=== PATIENT | male | born 1970 | race Caucasian/White ===

== ENCOUNTER 2019-02-05 09:31 | Inpatient (IN) ==
[2019-02-05] MEDS: Nitroglycerin 0.4 MG TAB.SUBL SL PRN ×2 (10:00→10:32)
[2019-02-05 10:03] LABS: Basophils % 0.2 %; Eosinophils # 0.1 K/mcL (0.0-0.6); Eosinophils % 0.5 %; Hemoglobin 16.5 g/dL (12.9-16.9); Immature Granulocytes % 0.5 % (0-4); Lymphocytes # 1.7 K/mcL (0.6-4.6); Lymphocytes % 14.2 %; Mean Corpuscular HGB Conc 35.9 g/dL (31.6-35.5); Mean Corpuscular Hemoglobin 32.4 pg (28.0-33.3); Mean Corpuscular Volume 90.2 fL (83.0-100.0); Mean Platelet Volume 10.8 fL (9.4-12.4); Monocytes # 1.1 K/mcL (0.0-1.3); Monocytes % 9.2 %; Platelet Count 168 K/mcL (140-400); Red Cell Distribution Width 12.1 % (11.5-14.5); Segmented Neutrophils % 75.4 %; White Blood Count 11.9 K/mcL (4.3-11.1)
[2019-02-05] MEDS ORDERED: Ondansetron ODT 4 MG TAB.RAPDIS SL ONE (10:17)
[2019-02-05 10:27] LABS: Troponin I 6.95 ng/mL (< 0.04)
--- NOTE | 2019-02-05 10:34 | Emergency Department Note ---
Disposition Clinical Impression: NSTEMI (non-ST elevated myocardial infarction) Disposition: Admitted As Inpatient Condition: Fair Referrals: Juliana Sánchez CNP [Primary Care Provider] - Forms: ED Satisfaction Letter Time of Disposition: 12:29 Chest Pain HPI - General Chief Complaint: ED Chest Pain Stated Complaint: CP Time Seen by Provider: 02/05/19 09:38 Source: patient Mode of arrival: private vehicle Limitations: no limitations Vital Signs Reviewed: Yes Nursing Notes Reviewed: Yes - History of Present Illness HPI Narrative: 48-year-old male with a past medical history of hypertension that reports chest pain that started Tuesday while he was sitting at work. He describes his chest pain as substernal in nature, feels like a pressure, is about a 5 out of 10. Not exacerbated or alleviated by anything. Also complaining of some concomitant diaphoresis and nausea. He denies any shortness of breath. Patient states that he was having difficulty sleeping last night because of the pain, tried Tylenol, tried ibuprofen without relief. Patient reports a family history of cardiac issues, states his grandfather of a heart attack when he was in his 40s. Patient does not know about any early cardiac in his family. Severity scale (1-10): 2 - Related Data Home Medications Medication Instructions Recorded Confirmed Omeprazole [PriLOSEC] 40 mg PO DAILY 02/05/19 02/05/19 Allergies Allergy/AdvReac Type Severity Reaction Status Date / Time No Known Allergies Allergy Verified 02/05/19 09:33 Chest Pain PMH - Past Medical History Medical history: Reports: GERD Psychiatric history: Reports: no psych history - Social History Smoking Status: Former smoker Alcohol use: Reports: heavy Drug use: Reports: none Physical Exam - General Limitations: no limitations General appearance: alert, in no apparent distress Course - Consultations Consultation #1: Spoke with Dr. Ferrer, cardiology, who states that they will come and see the patient at bedside. Agrees with the plan for heparin, requested 300 of plavix, beta bertha, and a statin. Will order. Time: 10:38 Vital Signs Temperature 97.8 F 02/05/19 09:32 Pulse Rate 73 02/05/19 09:32 Respiratory Rate 18 02/05/19 09:32 Blood Pressure 162/93 02/05/19 09:32 O2 Sat by Pulse Oximetry 99 02/05/19 09:32 Temperature 97.8 F 02/05/19 09:32 Pulse Rate 77 02/05/19 11:58 Respiratory Rate 16 02/05/19 11:58 Blood Pressure 134/91 02/05/19 11:58 O2 Sat by Pulse Oximetry 98 02/05/19 11:58 Oxygen Delivery Oxygen Delivery Room Air Chest Pain - MDM Narrative Medical decision making narrative: 48-year-old male with past medical history of hypertension that presents with chest pain that began on Tuesday while he was seated at his desk. Patient notes that he was unable to sleep for the pain last night so decided to get checked out. We will obtain a chest x-ray, EKG, troponin. Patient had resolution of his chest pain with the administration of 2 nitroglycerin. Patient's troponin was elevated at 6.95, EKG showed Q waves in leads 2, 3, aVF. He also had T-wave inversions in lead V4 through V6. Patient was started on low-dose ACS heparin, he was given 300 mg of Plavix, he was given 80 mg of atorvastatin, he was given a beta bertha per recommendation from cardiology. Cardiology came and evaluated the patient at the bedside and states that they would like him to go to the [facility] today. They placed orders. Patient was admitted to the hospitalist Dr. Estrada who agreed to accept the patient to his service. Results of the workup including any imaging and/or labwork was shared with the patient at bedside. Patient was given an opportunity to ask questions at bedside and all of their concerns were addressed. Patient verbalized understanding and agreement with plan of care. Pt remained stable while in the department. Chest X-Ray 02/05/19 09:43 IMPRESSION: No radiographic evidence of acute cardiopulmonary process. D/ / Krzysztof Cobb MD / Krzysztof Cobb MD Interpreting Provider: Krzysztof Cobb MD 1044 hrs.: Patient's troponins positive. Patient's pain free at this time cardiology was notified and are coming down to see the patient. 1110 hrs.: Dr. Ferrer from cardiology seen the patient Phenergan and taken to catheter lab emergently. Also got his EKG from urgent care and he did have some ischemic changes in inferior leads which is now resolved but he does have Q waves. He is pain-free at this time. - Medical Records Medical records reviewed: Yes I reviewed the patient's medical records. - Lab Data Lab results reviewed: Yes I reviewed the patient's lab results. Result diagrams: 02/05/19 09:51 02/05/19 09:51 Lab Results 02/05/19 02/05/19 02/05/19 Range/Units 09:51 09:51 09:51 WBC 11.9 H (4.3-11.1) K/mcL RBC 5.10 (4.19-5.50) M/mcL Hgb 16.5 (12.9-16.9) g/dL Hct 46.0 (37.5-50.1) % MCV 90.2 (83.0-100.0) fL MCH 32.4 (28.0-33.3) pg MCHC 35.9 H (31.6-35.5) g/dL RDW 12.1 (11.5-14.5) % Plt Count 168 (140-400) K/mcL MPV 10.8 (9.4-12.4) fL Immature Gran % 0.5 (0-4) % Seg Neutrophils % 75.4 % Lymphocytes % 14.2 % Monocytes % 9.2 % Eosinophils % 0.5 % Basophils % 0.2 % Neutrophils # 9.0 H (1.6-8.9) K/mcL Lymphocytes # 1.7 (0.6-4.6) K/mcL Monocytes # 1.1 (0.0-1.3) K/mcL Eosinophils # 0.1 (0.0-0.6) K/mcL Basophils # 0.0 (0.0-0.2) K/mcL PT 11.5 (9.4-12.1) Seconds INR 1.0 Heparin Anti-Xa, Unfract 0.00 L (0.30-0.70) IU/mL Sodium 137 (136-145) mEq/L Potassium 4.1 (3.5-5.1) mEq/L Chloride 101 (98-107) mEq/L Carbon Dioxide 23 (23-29) mEq/L BUN 9 (6-20) mg/dL Creatinine 0.97 (0.70-1.30) mg/dL Est GFR ( Amer) > 60 (> 60) Est GFR (Non-Af Amer) > 60 (> 60) BUN/Creatinine Ratio 9 (6-26) Glucose 125 H (70-105) mg/dL Calculated Osmolality 284 (280-300) Calcium 10.0 (8.6-10.3) mg/dL Troponin I 6.95 H* (< 0.04) ng/mL - Radiology Data Radiology results reviewed: Yes I reviewed the patient's radiology results. Chest X-Ray 02/05/19 09:43 IMPRESSION: No radiographic evidence of acute cardiopulmonary process. D/ / Krzysztof Cobb MD / Krzysztof Cobb MD Interpreting Provider: Krzysztof Cobb MD - EKG Data EKG attestation: Yes I reviewed and interpreted this EKG. EKG results narrative: 0943: Heart rate 77, rhythm sinus, axis left at -43. By mouth 165, QRS 101, QTc 477. Less than [address] depression noted in lead 1, aVR. Q waves noted in leads 2, 3, aVF. T-wave inversion noted in lead 2, 3, aVF, V4 through V6. No old EKG available for comparison. Heart Score - Score History: Moderately Suspicious EKG: Significant ST-Depression Age: 45-65 Risk Factors: 1-2 risk factors Troponin: Greater than 3x normal limit HEART Score Total: 7 Critical Care Time Critical Care Time: Yes Total Critical Care Time: 40 Attestation: Excluding any separately billable procedures
[2019-02-05 10:36] LABS: BUN/Creatinine Ratio 9 (6-26); Blood Urea Nitrogen 9 mg/dL (6-20); Carbon Dioxide 23 mEq/L (23-29); Chloride 101 mEq/L (98-107); Glucose 125 mg/dL (70-105); Osmolality,Calculated 284 (280-300); Potassium 4.1 mEq/L (3.5-5.1); Sodium 137 mEq/L (136-145); eGFR For African Americans > 60 (> 60); eGFR For Non-African Americans > 60 (> 60)
[2019-02-05] MEDS ORDERED: *HR* Heparin 5,000 UNIT/ML VIAL IVP ONE (10:36)
[2019-02-05] MEDS ORDERED: *HR* Heparin 5,000 UNIT/ML VIAL IVP PRN ×2 (10:36)
[2019-02-05] MEDS ORDERED: *HR* Labetalol 20 MG/4 ML SYRINGE IVP ONE (10:40)
[2019-02-05] MEDS ORDERED: Heparin 25,000 UNIT/250 ML D5W 25,000 UNIT/250 ML IV.SOLN IVC SCH (10:45)
[2019-02-05 11:08] LABS: Prothrombin Time 11.5 Seconds (9.4-12.1)
--- NOTE | 2019-02-05 11:22 | Cardiology Consult Note ---
Date of Encounter: 02/05/19 Time of Encounter: 11:18 Assessment and Plan (1) NSTEMI (non-ST elevated myocardial infarction) Current Visit: Yes Status: Acute Presentation consistent with ACS - NSTEMI. Symptoms resolved with NTG x2, ACS therapy being started in ER. Recommend DAPT, statin, BB, Heparin drip. Risks, benefits and alternatives to a LHC discussed. Patient and voiced understanding, wish to proceed. Check TTE. Risk factor modification encouraged. Further recommendations to follow. Discussion w patient/family: The assessment and plan as outlined above was discussed with the patient and/or family members who expressed understanding and agreement. All questions were answered. Thank you for involving us in the care of your patient. Please call with any questions. History of Present Illness Consult date: 02/05/19 Requesting physician: Edda Hermosillo Consult reason: ACS Chief complaint: Chest pain History of present illness: Mr. Gibbs is a 48 year old male who does not routinely see a doctor. Reports quit smoking in 2007. Presented to an outside urgent care with one week of intermittent chest discomfort. Describes as substernal pressure sensation, without radiation, nausea, or vomiting. Describes worsening exertional dyspnea over the past week. Symptoms became persistent over the weekend, especially yesterday. In urgent care this AM, ECG done and patient sent to ER. ECGs reviewed - inferior ND suggested, likely recent. Lateral ST-T changes noted. Reports pain resolved after second NTG in ER> Appeared very comfortable on my evaluation. ACS therapy being started by ER. Past Med Surg Social Fam HX - Past Medical History Medical history: GERD Psychiatric history: no psych history - Social History Smoking Status: Former smoker Alcohol use: heavy Drug use: none Medications and Allergies Allergy/AdvReac Type Severity Reaction Status Date / Time No Known Allergies Allergy Verified 02/05/19 09:33 All Systems Review: The remainder of the systems were reviewed and are negative - Cardiovascular Cardiovascular: as per HPI Physical Examination Vital Signs, Last 4 Hours Temp Pulse Resp BP Pulse Ox 02/05/19 10:34 71 18 134/95 96 02/05/19 10:25 76 16 137/92 97 02/05/19 09:53 63 16 143/98 96 02/05/19 09:32 97.8 F 73 18 162/93 99 General: Conversant, No Apparent Distress HEENT: Atraumatic, Normocephaly, Mucus Membranes Moist Neck: No JVD, Normal carotid pulses Cardiac: Reg Rate and Rhythm, Normal S1 and S2, No Murmur Lungs: Normal Breath Sounds, No Wheeze, Rales, Rhonchi Neuro: Alert and responsive, No focal deficits noted Abdomen: Soft, Non-Tender Skin: No rashes noted on visualized skin Musculoskeletal: No Chest Wall Tenderness Extremities: No Clubbing, No Cyanosis, No Edema Results 02/05/19 09:51 02/05/19 09:51 Lab Results 02/05/19 02/05/19 02/05/19 09:51 09:51 09:51 WBC 11.9 H Hgb 16.5 Hct 46.0 Plt Count 168 INR 1.0 Sodium 137 Potassium 4.1 Chloride 101 Carbon Dioxide 23 BUN 9 Creatinine 0.97 Glucose 125 H Calcium 10.0 Troponin I 6.95 H* - Imaging and Cardiology Chest Xray: report reviewed - EKG Interpretation EKG results cardiology: personally reviewed Consult Discharge Plan - Plan Referrals: Juliana Sánchez, MEDICAL RECEPTION [Primary Care Provider] -
[2019-02-05] MEDS: Metoprolol XL (24 HR) Succ 25 MG TAB.ER.24H PO SCH (11:58)
[2019-02-05] MEDS ORDERED: *HR* Midazolam HCl 2 MG/2 ML VIAL ONE (13:18)
[2019-02-05] MEDS ORDERED: *HR* FentaNYL (PF) 100 MCG/2 ML VIAL ONE (13:18)
[2019-02-05] MEDS ORDERED: 0.9 % Sodium Chloride 1,000 ML ONE (13:22)
--- NOTE | 2019-02-05 13:50 | Pre-Sedation Evaluation ---
Pre-sedation evaluation - Pre-sedation checklist Date of procedure: 02/05/19 Procedure: [facility] Recent Vitals: Last Vital Signs Temp 97.8 F 02/05/19 09:32 Pulse 69 02/05/19 12:45 Resp 16 02/05/19 12:45 BP 140/99 02/05/19 12:45 Pulse Ox 99 02/05/19 12:45 H&P (including ROS) documented in medical record: Yes Previous reaction to sedatives/anesthetics: No Dietary Status: NPO after Midnight ASA Classification *see protocol: CLASS II-Mild systemic disease Plan of Care: Pt appropriate candidate for procedure/moderate/conscious sedation, Risks/benefits of procedure/sedation discussed w/ patient/family Cardiac Registry (Cardio Only) - Functional Capacity Functional Capacity: >=4 METS with symptoms - Clincal Frailty Scale Clinical Frailty Scale: Managing Well
--- NOTE | 2019-02-05 13:52 | Internal Med History&Physical ---
<Karen Reilly - Last Filed: 02/05/19 17:43> Date of Encounter: 02/05/19 Internal Medicine - H&P: HPI History of present illness: Mr. Gibbs is a 48 year old male Internal Medicine - H&P: Meds Omeprazole [PriLOSEC] 40 mg PO DAILY 02/05/19 [History] Allergy/AdvReac Type Severity Reaction Status Date / Time No Known Allergies Allergy Verified 02/05/19 15:40 All Systems PM: A 10-system review of systems was performed and is negative for pertinent findings except as documented above in the HPI. - Constitutional Vitals: Temp Pulse Resp BP Pulse Ox 97.8 F 69 16 140/99 99 02/05/19 09:32 02/05/19 12:45 02/05/19 12:45 02/05/19 12:45 02/05/19 12:45 Internal Med - H&P Results - Labs CBC & Chem 7: 02/05/19 09:51 02/05/19 09:51 Labs: Short CBC 02/05/19 Range/Units 09:51 WBC 11.9 H (4.3-11.1) K/mcL Hgb 16.5 (12.9-16.9) g/dL Hct 46.0 (37.5-50.1) % Plt Count 168 (140-400) K/mcL Neutrophils # 9.0 H (1.6-8.9) K/mcL BMP 02/05/19 09:51 Sodium 137 Potassium 4.1 Chloride 101 Carbon Dioxide 23 BUN 9 Creatinine 0.97 Glucose 125 H Calcium 10.0 Cardiac Enzymes 02/05/19 Range/Units 09:51 Troponin I 6.95 H* (< 0.04) ng/mL - Impressions ITS Impressions Chest X-Ray 02/05/19 09:43 IMPRESSION: No radiographic evidence of acute cardiopulmonary process. D/ / Krzysztof Cobb MD / Krzysztof Cobb MD Interpreting Provider: Krzysztof Cobb MD - Time Spent With Patient Total time spent is greater than 50% in coordination of care (as documented) at patient's floor/unit and/or counseling patient: - Attending Attestation I examined this patient and my medical decision-making was reviewed with the Resident Physician Dr Gerardo. I agree with the documented findings, disposition and treatment plan as described except to the extent set forth below. Mr Gibbs is admitted with NSTEMI taken straight to cardiac cath lab radiology technologist from ED urgently. Pt seen and examined post cath awake, family at bedside. no cp, pressure, sob or palpitations. had cath R wrist, no hand pain, temp changes or numbness/tingling gen- alert, awake,appears stated age cv- reg rate and rhythm, normal s1,s2, no murmurs appreciated, cap refill right hand normal, warm ext lungs- ctabl, no wheezing, rhonchi or crackles neuro- AAOx3, sensation intact to lt touch hands NSTEMI CAD w total RCA occlusion s/p 3 RCA ESTELLA today -DAPT, statin, BB, hep gtt off, aggrastat to completion -echo pending Etoh use- drinks up to 20 beers weekly, denies etoh withdrawal, will add ciwa while here further dx and plan as noted by resident <Raoul Gerardo S - Last Filed: 02/05/19 20:07> Date of Encounter: 02/05/19 Time of Encounter: 13:43 Internal Medicine - H&P: HPI Chief complaint: Chest pain Admitted From: Home Plans for Post Hospital Care: Home History of present illness: Mr. Gibbs is a 48 year old male with pmh significant only for GERD being admitted for NSTEMI. He reports substernal pressure/pain rated 5/10 that does not radiate had been coming and going x 2 weeks, then started suddenly while sitting at his desk tuesday, and remained relatively constant, becoming more constant yesterday and today. He was unable to sleep last night due to pain. He tried APAP and Ibuprofen without relief of the pain and went to Urgent care today. EKG performed there showed abnormalities and the patient was sent to our facility. Initial troponin was 6.95 and EKG showed changes suggestive of inferior ischemia and some ST changes in the lateral leads. ACS treatment was initiated in the ED. Dr Ferrer of cardiology saw the patient and took him for urgent [facility], Where RCA 100% occlusion was treated with angioplasty and placement of 3 drug-eluting stents. He is in good condition at this time after his procedure, is resting comfortably in bed, and reports no ongoing chest pain or shortness of breath. he denies any other symptoms, including nausea, extremity edema or pain Past Med Surg Social Fam HX - Past Medical History Medical history: GERD Psychiatric history: no psych history - Social History Smoking Status: Former smoker Alcohol use: heavy Drug use: none - Family History Mother Living Status: Still Living Hx Family Cardiac Disorders: Yes Father Living Status: Still Living Hx Family Cardiac Disorders: Yes All Systems PM: A 10-system review of systems was performed and is negative for pertinent findings except as documented above in the HPI. - Constitutional Constitutional: no excessive sweating - Cardiovascular Cardiovascular ROS IM: no chest pain, no dyspnea, no lightheadedness - Respiratory Respiratory: no cough, no dyspnea - Gastrointestinal Gastrointestinal: no abdominal pain, no constipation, no diarrhea - Genitourinary Genitourinary ROS male: no dysuria - Neurological Neurological ROS: no confusion, no dizziness, no numbness, no tingling - Constitutional Vitals: Temp Pulse Resp BP Pulse Ox 97.8 F 69 16 140/99 99 02/05/19 09:32 02/05/19 12:45 02/05/19 12:45 02/05/19 12:45 02/05/19 12:45 Exam: Gen: Awake and alert, no acute distress, well-nourished, well kempt Head: Normocephalic, atraumatic Eyes: EOMI, no scleral icterus ENT: Mucous membranes moist, no oropharyngeal erythema CV: S1-S2 present, regular at a rate of 60, no murmurs rubs or gallops, Pulm: CTAB, not tachypneic, no respiratory distress, no increased work of breathing, no rales or ronchi Abd: Soft, nontender to palpation, obese, nondistended, no rebound or guarding. Bowel sounds not noted EXT: Grossly intact motor strength in all 4 extremities, no lower extremity edema, no distal cyanosis or pallor. Pressure dressing in place over R wrist Skin: Warm, dry, intact, no rashes or lesions noted Neuro: Cranial nerves II-XII grossly intact, no focal nurologic deficits Psych: normal mood and affect, Answers questions with intact judgement, appropriate insight, and linear thought. significant social support in place - numerous family members present at bedside. Internal Med - H&P Results - Labs CBC & Chem 7: 02/05/19 09:51 02/05/19 09:51 Labs: Short CBC 02/05/19 Range/Units 09:51 WBC 11.9 H (4.3-11.1) K/mcL Hgb 16.5 (12.9-16.9) g/dL Hct 46.0 (37.5-50.1) % Plt Count 168 (140-400) K/mcL Neutrophils # 9.0 H (1.6-8.9) K/mcL BMP 02/05/19 09:51 Sodium 137 Potassium 4.1 Chloride 101 Carbon Dioxide 23 BUN 9 Creatinine 0.97 Glucose 125 H Calcium 10.0 Cardiac Enzymes 02/05/19 Range/Units 09:51 Troponin I 6.95 H* (< 0.04) ng/mL - Impressions ITS Impressions Chest X-Ray 02/05/19 09:43 IMPRESSION: No radiographic evidence of acute cardiopulmonary process. D/ / Krzysztof Cobb MD / Krzysztof Cobb MD Interpreting Provider: Krzysztof Cobb MD - Assessment and Plan (1) NSTEMI (non-ST elevated myocardial infarction) Current Visit: Yes Status: Acute Assessment and plan: NSTEMI diagnosed on 02/05 with troponin of 6.95, EKG changes consistent with inferior ischemia, Status post [facility] with PCI, 3 stents to RCA for 100% occlusion * Continue Aggrastat to completion of infusion * Metoprolol 25 mg by mouth daily * Aspirin 81 mg by mouth daily * Plavix 300mg loading dose given prior to PCI, continue 75 mg by mouth daily * Lipitor 80 mg by mouth QHS * Nitroglycerin 0.4 mg sublingual PRN for pain (2) Obesity (BMI 30.0-34.9) Current Visit: Yes Status: Acute Assessment and plan: Considering possibility of undiagnosed DM, given Body habitus and lifestyle * check A1c AM * Monitor blood sugar in AM bmp (3) GERD (gastroesophageal reflux disease) Current Visit: Yes Status: Acute Assessment and plan: Asymptomatic at this time * Continue home omeprazole 40 mg QD. Qualifiers: Qualified Code(s): K21.9 - Gastro-esophageal reflux disease without esophagitis (4) Alcohol use Current Visit: Yes Status: Acute Assessment and plan: Patient states he drinks 20 beers/week. The discussion between him and his to arrive at this number makes it seem likely this is a low-end estimate * CAGE questionnaire tomorrow if amenable * Monitor for s/s EtOH withdrawal - Summary of Assessment and Plan Summary of Assessment and Plan: * S/P PCI with Stent of RCA x3 02/05/19 * ASA and Plavix * Monitor for Post-OR complications * A1c in AM * D/C when stable per Cardio Recs - Time Spent With Patient Total time spent is greater than 50% in coordination of care (as documented) at patient's floor/unit and/or counseling patient:
[2019-02-05] MEDS ORDERED: Tirofiban 12.5 MG/250ML 12.5 MG/250 ML BAG ONE (14:20)
[2019-02-05] MEDS ORDERED: Ondansetron 4 MG/2 ML VIAL IVP PRN (14:47)
[2019-02-05] MEDS ORDERED: Acetaminophen 325 MG TABLET PO PRN (14:47)
[2019-02-05] MEDS ORDERED: *HR* HYDROcodone/Acet 5/325 mg TABLET PO PRN (14:47)
--- NOTE | 2019-02-05 14:55 | Invasive Diagnostic Lab Proc ---
Name: Wilfrido Gibbs Date of Study: 02/05/2019 Date: 1970 Ht: 72.0in Medical Record#: [id number] Age: 48 Wt: 249.12lb Gender: Male BSA: 2.34 Order #: [id number] BMI: 33.74 Physicians Procedure Physician: Garett Benito MD, [facility] Referring MD: Referring MD: Staff Name Position Time In Su Calvillo RN Monitor 01:25 PM Alex Hoyos RN Supervisor/Port Director 01:25 PM Dinora Grimes RT (R) Scrub 01:25 PM Procedures Performed Procedure L HRT ARTERY/VENTRICLE ANGIO PRQ CARD ESTELLA STENT W/ANGIO 1 VSL Pre-Procedure Checklist Pt not NPO for procedure and MD aware. Blood Pressure: 134/91 Plan of Care Patient will tolerate the procedure without complications. Adequate level of comfort will be maintained. Hemodynamics will remain stable Patient will recover from procedure without complications. Respiratory function will be maintained. Cardiac rhythm will remain stable. Patient temperature will be maintained. Patient and/or family have verbalized understanding of the procedure. Patient Education Chief Complaint/Reason for Test: Cardiac Cath Developmental Category: Adult (18-64 years) Developmentally Appropriate for Age: Yes Learning Barriers: None Education Needs: Procedure Education Method: Verbal Information Taught: Cardiac Cath Educational Evaluation: Able to repeat information Intravenous Access Time IV Size Location DC'd Fluid/Drip Rate Units RN 12:24 PM 20g 1 /" Patent On Arrival Lt Antecubital Allergies No Known Allergies Vital Signs Time BP (mmHg) HR (bpm) O2 Sat. RR (bpm) LOC 12:24 PM 134 / 91 77 98 % 16 5 = Fully awake and oriented or at pre-proc level 01:43 PM / % 5 = Fully awake and oriented or at pre-proc level 01:43 PM / % 01:58 PM / % 4 = Oriented but drowsy 02:13 PM / % 4 = Oriented but drowsy 01:35 PM 151 / 103 64 95 % 21 01:39 PM 130 / 90 75 94 % 14 01:44 PM 135 / 88 77 88 % 15 01:49 PM 139 / 86 72 96 % 9 01:54 PM 139 / 93 68 90 % 18 01:59 PM 120 / 74 84 88 % 17 02:04 PM 136 / 84 62 97 % 12 02:09 PM 130 / 89 78 97 % 17 02:14 PM 132 / 86 54 97 % 11 02:19 PM 129 / 69 68 94 % 15 02:24 PM 121 / 79 60 96 % 15 02:29 PM 130 / 71 52 97 % 10 Procedural Medications Time Medication Dose Units Method Given By 01:34 PM Oxygen 2 L/min nasal cannula Alex Hoyos RN 01:34 PM Versed 2 mg Intravenous Alex Hoyos RN 01:34 PM Fentanyl 50 mcg Intravenous Alex Hoyos RN 01:54 PM Lidocaine 2% 1 ml Subcutaneous Garett Benito MD, FAC 01:56 PM Heparin 2000 units Nitroglycerin 200 mcg Verapamil 2.5 mg Intraarterial Garett Benito MD, FACC 02:10 PM Heparin 3000 units Intravenous Alex Hoyos RN 02:12 PM Nitroglycerin 200 mcg Intracoronary Garett Benito MD 02:15 PM Fentanyl 25 mcg Intravenous Alex Hoyos RN 02:22 PM Aggrastat Bolus: 58 ml Intravenous Alex Hoyos RN 02:23 PM Aggrastat 12.5mg/250ml 21 ml/hr Intravenous Alex Hoyos RN ASA Classification: CLASS II- Mild systemic disease (i.e. well-controlled diabetes, hypertension, asthma, cigarette smoking) Filipe Score Preprocedure Postprocedure Activity Activity Circulation Circulation Consciousness Consciousness O2 Saturation O2 Saturation Respiratory Respiratory Total Score Total Score Contrast Agent: Isovue Diagnostic Contrast: 115 ml Total Contrast: 115 ml Fluoro Dose: 45 mGy Activated Clotting Time Time Seconds to Clot 02:10 PM 167 Procedure Log Time Note Enter By 01:20 PM CathStat 01:25 PM Su Calvillo RN Position: Monitor Time in: 13:25 [facility] 01:25 PM Alex Hoyos RN Position: Supervisor/Port Director Time in: 13:25 [facility] 01:25 PM Dinora Grimes RT (R) Position: Scrub Time in: 13:25 01:30 PM 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 Informed consent was obtained. :31 PM Procedure start 13:31 mm 01:31 PM Vitals capture started with the following parameters, Patient=Adult, Interval=5 min, Initial Ioeferzc=998 mmHg, Deflation Rate=3 mmHg, Cuff placed on Right Arm 01:31 PM Vitals capture stopped. 01:33 PM Vitals capture started with the following parameters, Patient=Adult, Interval=5 min, Initial Qdcrvuuk=094 mmHg, Deflation Rate=3 mmHg, Cuff placed on Right Arm 01:33 PM Recorded ECG: HR=67 Condition=Condition 1 01:34 PM Time: 13:34 Oxygen on at 2 L/min per nasal cannula by Alex Hoyos RN [email or web address] :34 PM Time: 13:34 Versed 2 mg Intravenous Given by Alex Hoyos RN kaylah :34 PM Time: 13:34 Fentanyl 50 mcg Intravenous Given by Alex Hoyos RN [email or web address] 01:35 PM Hair removed from procedure site in procedure lab using clippers. Right wrist and Right groin prepped with Chloraprep by Alex Hoyos RN, then patient was draped. Skin intact. mm 01:35 PM ASA Class CLASS II- Mild systemic disease (i.e. well-controlled diabetes, hypertension, asthma, cigarette smoking) oumm 01:35 PM HR=64 bpm, LIYW=959/103 mmhg, SpO2=95.0 %, Resp=21 B/min 01:39 PM HR=75 bpm, ZWRZ=974/90 mmhg, SpO2=94.0 %, Resp=14 B/min 01:43 PM Patient charges- Angio tray pack, Navilyst 3mm J, Pulse Oximetry and ACIST tubing and transducer oumm:43 PM Time: 13:43 Patient comfortable and pain free: Yes oumm:43 PM Time: 13:43LOC: 5 = Fully awake and oriented or at pre-proc level tsoumm 01:44 PM HR=77 bpm, APTY=259/88 mmhg, SpO2=88.0 %, Resp=15 B/min 01:49 PM HR=72 bpm, VWAJ=793/86 mmhg, SpO2=96.0 %, Resp=9 B/min 01:54 PM Time out was performed according to hospital policy. Conscious sedation and anesthesia was achieved (see medication log with in this report above) tsoummers 01:54 PM HR=68 bpm, SFLN=289/93 mmhg, SpO2=90.0 %, Resp=18 B/min 01:54 PM Time: 13:54 1 ml Lidocaine 2% to right radial Subcutaneous Given by Garett Benito MD, [facility] tsoummers 01:56 PM Access obtained by percutaneous puncture. 5-6Fr 10cm Terumo Glidesheath sheath placed in right Radial artery. [id number] tsoummers 01:56 PM Time: 13:56 Patient given 2,000 units Heparin, 200 mcg Nitroglycerin, and 2.5 mg Verapamil Intraarterial by Garett Benito MD, [facility]. This is given to reduce risk of vessel spasm and thrombosis. tsoummers 01:56 PM 0.035 260cm Navilyst 3mmJ wire [id number] tsoummers 01:56 PM 5Fr TIG catheter inserted over the wire [facility] tsoummers 01:57 PM wire removed tsoummers :58 PM LCA angiography performed in multiple views. tsoummers :58 PM Time: 13:43 Patient comfortable and pain free: Yes tsoummers 01:58 PM LCA angiography performed in multiple views. tsoummers 01:59 PM Recorded Pressure: Ao, HR=85, Condition=Condition 1 (Aorta) Ao 97/70/87 01:59 PM HR=84 bpm, PXUK=741/74 mmhg, SpO2=88.0 %, Resp=17 B/min 01:59 PM Lesion found in Distal LMCA. Pre Stenosis: 20 Pre SOLANGE Flow: tsoummers 01:59 PM Left Main Coronary Artery with 20% stenosis tsoummers 02:00 PM Proximal Left Anterior Descending Coronary Artery with 60% stenosis. If graft is supplying this territory, 0 % stenosis. tsoummers 02:00 PM Circumflex, Obtuse Marginal, Left Posterior Descending, and Left Posterolateral Coronary Arteries with 60 % stenosis. If graft is supplying this area, 0 % stenosis tsoummers 02:00 PM Lesion found in Proximal LAD. Pre Stenosis: 60 Pre SOLANGE Flow: tsoummers 02:00 PM Lesion found in Proximal Circumflex. Pre Stenosis: 60 Pre SOLANGE Flow: tsoummers 02:00 PM Recorded Pressure: Ao, HR=80, Condition=Condition 1 (Aorta) Ao 102/86/94 02:00 PM RCA angiography performed in multiple views. tsmm 02:01 PM Catheter removed 02:01 PM Lesion found in Proximal RCA. Pre Stenosis: 100 Pre SOLANGE Flow: 0: No Flow/No perfusion tsoumm 02:01 PM Right Coronary, Right Posterior Descending Arteries with Right Posterolateral and Acute Marginal branches with 100 % stenosis. If graft is supplying this area, 0 % stenosis tsoumm 02:01 PM 5Fr Pigtail catheter inserted over the wire [facility] tsoumm 02:02 PM Catheter crossed the aortic valve and was selectively placed in the left ventricle. Pressures recorded on pullback for left heart catheterization. tsoumm 02:03 PM Recorded Pressure: LV, HR=79, Condition=Condition 1 (Left Ventricle) LV 120/4/13 02:03 PM Bolus angiogram of left Ventricle complete: 12 ml/sec for a total of 30 mls tsoumm 02:04 PM Recorded Pressure: LV, Ao, HR=67, Condition=Condition 1 (Left Ventricle) LV 113/4/13, (Aorta) Ao 104/75/87 02:04 PM HR=62 bpm, CCOK=499/84 mmhg, SpO2=97.0 %, Resp=12 B/min 02:05 PM Catheter removed 02:06 PM Inflation device was opened. ts 02:06 PM 6Fr JR 4 Runway guide catheter was used to cannulate the PCI vessel successfully. reused? No tsoummers 02:08 PM .014 PT Graphix 182cm guide wire across target lesion- successful. reused? No tsoummers 02:09 PM 2.25 mm x 20 mm Mini Trek Rx balloon across target lesion- successful. reused? No tsoummers 02:09 PM HR=78 bpm, RLNP=044/89 mmhg, SpO2=97.0 %, Resp=17 B/min 02:10 PM Balloon inflated @ 8 janet for 10 seconds mm 02:10 PM At 14:10 the ACT was 167 seconds. tsoumm 02:10 PM Time: 14:10 Heparin 3000 units Intravenous Given by Alex Hoyos RN 02:11 PM Balloon inflated @ 14 janet for 14 seconds tsoumm 02:13 PM Time: 14:12 Nitroglycerin 200 mcg Intracoronary Given by Garett Benito MD 02:13 PM Time: 13:58LOC: 4 = Oriented but drowsy 02:13 PM Time: 13:58 Patient comfortable and pain free: Yes 02:13 PM Balloon inflated @ 14 janet for 16 seconds 02:14 PM Balloon inflated @ 14 janet for 10 seconds 02:14 PM HR=54 bpm, EURY=012/86 mmhg, SpO2=97.0 %, Resp=11 B/min 02:15 PM Balloon catheter removed intact. 02:15 PM Time: 14:15 Fentanyl 25 mcg Intravenous Given by Alex Hoyos RN [email or web address] 02:16 PM 2.5mm x 28mm Synergy drug-eluting stent across target lesion- successful Lot #[id number] 02:18 PM Stent deployed @ 18 janet for 21 seconds 02:19 PM Stent delivery system removed intact. 02:19 PM HR=68 bpm, MENN=975/69 mmhg, SpO2=94.0 %, Resp=15 B/min 02:20 PM 3.0mm x 28mm Synergy drug-eluting stent across target lesion- successful Lot #[id number] 02:21 PM Stent deployed @ 16 janet for 22 seconds 02:23 PM Time: 14:22 Aggrastat Bolus: 58 ml Intravenous Given by Alex Hoyos RN Aguilar pump [email or web address] 02:23 PM Time: 14:23 Aggrastat 12.5mg/250ml 21 ml/hr Intravenous Given by Alex Hoyos RN [email or web address] 02[facility]23 PM Stent delivery system removed intact. 02:23 PM Recorded Pressure: Ao, HR=53, Condition=Condition 1 (Aorta) Ao 116/79/96 02:24 PM 3.0 mm x 15mm NC Emerge balloon across target lesion- successful. reused? No mm 02:24 PM HR=60 bpm, SOIK=646/79 mmhg, SpO2=96.0 %, Resp=15 B/min 02:25 PM Balloon inflated @ 12 janet for 6 seconds oumm 02:26 PM Balloon inflated @ 14 janet for 12 seconds oumm 02:26 PM Balloon inflated @ 14 janet for 17 seconds tsoumm 02:27 PM Balloon catheter removed intact. mm 02:28 PM Time: 14:13 Patient comfortable and pain free: Yes mm 02:28 PM Time: 14:13LOC: 4 = Oriented but drowsy tsoumm 02:28 PM 3.0mm x 12mm Synergy drug-eluting stent across target lesion- successful Lot #[id number] oumm 02:29 PM HR=52 bpm, RYOF=318/71 mmhg, SpO2=97.0 %, Resp=10 B/min 02:30 PM Stent deployed @ 16 janet for 14 seconds tsmm 02:30 PM Stent balloon reinflated @ 16 janet for 17 seconds tsoumm 02:31 PM Stent delivery system removed intact. mm 02:32 PM Guide wire removed intact. mm 02:32 PM Guide catheter removed intact. mm 02:33 PM Procedure completed at 14:33 02/05/2019mm 02:33 PM Did you address SOLANGE flow and Dominance? YesCoronary Dominance: right tsoumm 02:33 PM Coronary Dominance: right tsoumm 02:34 PM Sign out completed: Radiation Dose 458.47 mGy, 44.7 Gy/cm2 Fluoro Time: 8.5 Isovue 370 - 200ml contrast 115 ml given by Garett Benito MD, [facility]. Complications: None. 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 Sedation minutes 60. Cardiac Rehab Consult needed: Yes. Confirmed administered medications: Yes mm 02:34 PM Isovue 370 - 200ml,1 Bottle(s) used. mm 02:34 PM Arterial sheath pulled, Vasc Band closure device used and was Successful S/N. mm 02:34 PM 9 ml air in Vasc Band. mm 02:34 PM Estimated Blood Loss: minimal oumm 02:34 PM Post ECG Sinus Bradycardia tsoummers 02:34 PM Post Blood Pressure 130/71 tsoummers 02:34 PM 14:34 Post Pulses Rt Radial 1+ mm 02:34 PM Information taught Cardiac Cath, PCI, and Vasc Band ts 02:34 PM Education needs Procedure, Plan of Care, and Responsibilities of Patient in Care 02:34 PM Learning barriers :None 02:35 PM Education Methods Verbal 02:35 PM Education evaluation Able to repeat information 02:35 PM Site status No bleeding/ No Hematoma - Rt Wrist as reported by Dinora Grimes RT (R) at 14:35 [facility] 02:35 PM Plavix, Effient or Brilinta given received 300mg plavix in ED 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 02:37 PM Patient out of room: 14:37 [facility] 02:38 PM Lesion found in Mid RCA. Pre Stenosis: 80 Pre SOLANGE Flow: 3: Complete and Brisk Flow/Perfusion 02:38 PM Lesion found in Distal RCA. Pre Stenosis: 80 Pre SOLANGE Flow: 3: Complete and Brisk Flow/Perfusion [facility] 02:39 PM Report given to shea SHARMA Pt taken to E Room #27. 14:38 [facility] Complications Complication None Hemodynamics Pressures Site Systolic/A Wave Diastolic/V Wave Mean AO 97 70 87 AO 102 86 94 LV 120 4 13 LV 113 4 13 AO 104 75 87 AO 116 79 96 Post Procedure Information Blood Pressure: 130/71 mmHg Rhythm: Sinus Bradycardia Post procedural instructions were given Closure Device Time Device Success/Fail 02/05/2019 2:35:00 PM Mechanical Compression Successful Site Checks Time Location Status Staff Sheath In? Note 02:35 PM Rt Wrist No bleeding/ No Hematoma Dinora Grimes RT (R) Pulses Time Site Pre-Procedure Post-Procedure Note 2:34:00 PM Rt Radial 1+ Updated by Su Calvillo RN on 02/05/2019 2:48:57 PM electronically signed on 02/05/2019 2:49:32 PM with status of Final
[2019-02-05] MEDS ORDERED: Tirofiban 12.5 MG/250ML 12.5 MG/250 ML BAG IVC SCH (15:00)
--- NOTE | 2019-02-05 16:08 | Electrocardiograph Report ---
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
[2019-02-05] MEDS ORDERED: *HR* LORazepam 2 MG/ML VIAL IVP PRN ×3 (17:46)
[2019-02-06 02:17] LABS: Basophils % 0.4 %; Eosinophils # 0.1 K/mcL (0.0-0.6); Eosinophils % 1.2 %; Hematocrit 40.4 % (37.5-50.1); Immature Granulocytes % 0.3 % (0-4); Lymphocytes # 2.2 K/mcL (0.6-4.6); Lymphocytes % 31.7 %; Mean Corpuscular HGB Conc 34.7 g/dL (31.6-35.5); Mean Corpuscular Hemoglobin 32.6 pg (28.0-33.3); Mean Corpuscular Volume 94.2 fL (83.0-100.0); Mean Platelet Volume 10.7 fL (9.4-12.4); Monocytes # 0.9 K/mcL (0.0-1.3); Monocytes % 13.5 %; Neutrophils # 3.6 K/mcL (1.6-8.9); Platelet Count 137 K/mcL (140-400); Red Blood Count 4.29 M/mcL (4.19-5.50); Red Cell Distribution Width 12.3 % (11.5-14.5); Segmented Neutrophils % 52.9 %; White Blood Count 6.8 K/mcL (4.3-11.1)
[2019-02-06 02:18] LABS: Estimated Average Glucose 97 mg/dl
[2019-02-06 02:38] LABS: BUN/Creatinine Ratio 10 (6-26); Blood Urea Nitrogen 13 mg/dL (6-20); Calcium 8.6 mg/dL (8.6-10.3); Carbon Dioxide 26 mEq/L (23-29); Chloride 103 mEq/L (98-107); Glucose 127 mg/dL (70-105); Osmolality,Calculated 288 (280-300); Potassium 3.6 mEq/L (3.5-5.1); Sodium 138 mEq/L (136-145); eGFR For African Americans > 60 (> 60); eGFR For Non-African Americans > 60 (> 60)
[2019-02-06 06:34] VITALS: BP 111/77
--- NOTE | 2019-02-06 07:59 | Internal Med Progress Note ---
Hospitalist Progress Note - Encounter Date of Encounter: 02/06/19 Time of Encounter: 07:59 - Exam Vitals: Temp Pulse Resp BP Pulse Ox 98.3 F 68 14 111/77 96 02/06/19 05:46 02/06/19 06:31 02/06/19 05:46 02/06/19 06:31 02/06/19 06:31 Exam: Gen: Awake and alert, no acute distress, well-nourished, well kempt Head: Normocephalic, atraumatic Eyes: EOMI, no scleral icterus ENT: Mucous membranes moist, no oropharyngeal erythema CV: S1-S2 present, regular at a rate of 60, no murmurs rubs or gallops, Pulm: CTAB, not tachypneic, no respiratory distress, no increased work of breathing, no rales or ronchi Abd: Soft, nontender to palpation, obese, nondistended, no rebound or guarding. Bowel sounds not noted EXT: Grossly intact motor strength in all 4 extremities, no lower extremity edema, no distal cyanosis or pallor. Pressure dressing in place over R wrist Skin: Warm, dry, intact, no rashes or lesions noted Neuro: Cranial nerves II-XII grossly intact, no focal nurologic deficits Psych: normal mood and affect, Answers questions with intact judgement, appropriate insight, and linear thought. significant social support in place - numerous family members present at bedside. - Time Spent with Patient Total time spent is greater than 50% in coordination of care (as documented) at patient's floor/unit and/or counseling patient: Internal Medicine: Result - Labs CBC & Chem 7: 02/06/19 01:35 02/06/19 01:35 Labs: Short CBC 02/05/19 02/06/19 Range/Units 09:51 01:35 WBC 11.9 H 6.8 (4.3-11.1) K/mcL Hgb 16.5 14.0 D (12.9-16.9) g/dL Hct 46.0 40.4 (37.5-50.1) % Plt Count 168 137 L (140-400) K/mcL Neutrophils # 9.0 H 3.6 (1.6-8.9) K/mcL BMP 02/05/19 02/06/19 09:51 01:35 Sodium 137 138 Potassium 4.1 3.6 Chloride 101 103 Carbon Dioxide 23 26 BUN 9 13 Creatinine 0.97 1.24 Glucose 125 H 127 H Calcium 10.0 8.6 Cardiac Enzymes 02/05/19 Range/Units 09:51 Troponin I 6.95 H* (< 0.04) ng/mL - ABG Interpretation ABG results: PT/INR, D-dimer PT 11.5 Seconds (9.4-12.1) 02/05/19 09:51 - Impressions Impressions Chest X-Ray 02/05/19 09:43 IMPRESSION: No radiographic evidence of acute cardiopulmonary process. D/ / Krzysztof Cobb MD / Krzysztof Cobb MD Interpreting Provider: Krzysztof Cobb MD Consult Discharge Plan - Plan Referrals: Juliana Sánchez, [facility] [Primary Care Provider] -
[2019-02-06] MEDS: Metoprolol XL (24 HR) Succ 25 MG TAB.ER.24H PO SCH (08:50)
[2019-02-06] MEDS ORDERED: Vitamin B Complex/Vit C/Vit E 1 EACH TABLET PO SCH (09:00)
[2019-02-06] MEDS ORDERED: Thiamine (B-1) 100 MG TABLET PO SCH (09:00)
[2019-02-06] MEDS ORDERED: Folic Acid 1 MG TABLET PO SCH (09:00)
[2019-02-06] MEDS ORDERED: Aspirin 81 MG TAB.CHEW PO SCH (09:00)
--- NOTE | 2019-02-06 11:06 | Discharge Summary ---
<Selwyn Chandler - Last Filed: 02/06/19 14:54> - NOTES TO OUTPATIENT PROVIDER Notes to Outpatient Provider: Mr. Gibbs is a 48 y/o male who presented to urgent care for substernal chest pain x 2 weeks. EKG revealed abnormalaties and he was transfered to [facility] for evaluation. ED course significant for EKG changes suggestive of inferior ischemia and elevated troponin of 6.95. ACS treatment was initiated and patient was taken for urgent left heart catheterization. RCA was 100% occluded and treated with placement of 3 drug-eluding stents. He was admitted for observation and improved considerably in the following 24 hours. He was started on BB, ASA, statin, nitro PRN for chest pain. Plan is for cardiac r ehab, PCP follow up, and cardiology follow up with Dr. Garett Benito. Patient is to remain off-work until cardiology follow-up. Date of Encounter: 02/06/19 Time of Encounter: 11:04 - Discharge Diagnosis (1) NSTEMI (non-ST elevated myocardial infarction) Priority: Primary Status: Acute Assessment and Plan: Patient with NSTEMI diagnosed on 02/05 with troponin of 6.95, EKG changes consistent with inferior ischemia. He is s/p [facility] with PCI, 3 stents to RCA for 100% occlusion. - Patient was started on Metoprolol, ASA, Plavix, Lipitor during his hospitalization and tolerated meds without side effects. - Plan to follow-up with Dr. Benito in [facility], PCP. (2) Alcohol use Priority: Secondary Status: Chronic Assessment and Plan: Patient reported heavy alcohol use for many years. Endorsed that he drinks up to 20 beers/week. CIWA protocol was initiated during his hospitalization. There was no evidence of withdrawl and patient was started on multivitamin regimen. - Reduce alcohol consumption and follow-up with PCP for further management and treatment options. Hospital course: Mr. Gibbs is a 48 year old male with PMHx significant only for GERD admitted to [facility] for NSTEMI. Patient reported substernal pressure/pain x 2 weeks, that worsened acutely and remained relatively constant. APAP and Ibuprofen was tried but did not provide relief of the pain. He was seen at urgent care and EKG performed showed abnormalities. He was transferred to our facility and initial troponin was 6.95, EKG showed changes suggestive of inferior ischemia and some ST changes in the lateral leads. ACS treatment was initiated in the ED. Dr Ferrer of cardiology saw the patient and took him for urgent LHC. 100% occlusion of the RCA was discovered and the patient was treated with angioplasty and placement of 3 drug- eluting stents. He was in good condition following procedure and denied further chest pain and shortness of breath. He was started on Metoprolol, Plavix, ASA, Lipitor while in the hospital and tolerated medications without side effects. Cardiology recommended adding low-dose BASIL inhibitor and nitro PRN for chest pain to regimen which was prescribed at discharge. Discharge discussed with: patient, nurse - Time Spent with Patient Total time spent providing and/or coordinating discharge services: Time spent: Greater than 30 minutes - Discharge Medications Prescriptions: New Aspirin 81 mg PO DAILY 30 Days #30 tab.chew Atorvastatin [Lipitor] 80 mg PO HS 30 Days #30 tablet Clopidogrel [Plavix] 75 mg PO DAILY 30 Days #30 tablet Metoprolol XL (24 HR) Succ [Toprol Xl] 25 mg PO DAILY 30 Days #30 tab.er.24h Nitroglycerin 0.4 mg SL Q5MPRN PRN 20 Days #20 tab.subl PRN Reason: Chest Pain Lisinopril [Zestril] 2.5 mg PO DAILY 30 Days #30 tablet Continued Omeprazole [PriLOSEC] 40 mg PO DAILY Home Medications: Omeprazole [PriLOSEC] 40 mg PO DAILY 02/05/19 [History] Aspirin 81 mg PO DAILY 30 Days #30 tab.chew 02/06/19 [Rx] Atorvastatin [Lipitor] 80 mg PO HS 30 Days #30 tablet 02/06/19 [Rx] Clopidogrel [Plavix] 75 mg PO DAILY 30 Days #30 tablet 02/06/19 [Rx] Lisinopril [Zestril] 2.5 mg PO DAILY 30 Days #30 tablet 02/06/19 [Rx] Metoprolol XL (24 HR) Succ [Toprol Xl] 25 mg PO DAILY 30 Days #30 tab.er.24h 02/06/19 [Rx] Nitroglycerin 0.4 mg SL Q5MPRN PRN 20 Days #20 tab.subl 02/06/19 [Rx] Allergies/Adverse Reactions: Allergy/AdvReac Type Severity Reaction Status Date / Time No Known Allergies Allergy Verified 02/05/19 15:40 Date of admission: 02/05/19 14:28 Primary care physician: Juliana Sánchez CNP Consults: 02/05/19 14:48 Consult to Cardiac Rehabilitation-Phase1 [CONS] Routine Comment: Reason for Consult: acute mi Call Completed: Yes Discharging clinician: Selwyn Chandler Anticipated date of discharge: 02/06/19 - Constitutional Vitals: Temp Pulse Resp BP Pulse Ox 98.3 F 68 14 111/77 96 02/06/19 05:46 02/06/19 06:31 02/06/19 05:46 02/06/19 06:31 02/06/19 06:31 General appearance: Present: A&O X 3 Exam: see below - Head Head exam: Present: atraumatic, normocephalic - Eye Eye exam: Present: normal appearance, conjuntiva pink, sclera anicteric - ENT ENT exam: Present: mucous membranes moist, normal oropharynx - Neck Neck exam general surgery: Present: normal inspection, trachea midline - Respiratory Respiratory exam: Present: CTAB, rales, wheezes. Absent: rhonchi - Cardiovascular Cardiovascular exam: Present: RRR, +S1, +S2. Absent: diastolic murmur, JVD, systolic murmur - GI/Abdominal GI/Abdominal exam: Present: normal bowel sounds, soft. Absent: distended, guarding, tenderness - Extremities Exam Extremities exam: Present: normal capillary refill. Absent: cyanotic, pedal edema, tenderness - Neurological Exam Neurological exam: Present: CN II-XII intact, no focal deficits. Absent: speech deficit - Psychiatric Psychiatric exam: Present: normal affect, normal mood - Skin Skin exam: Present: dry, warm. Absent: pallor, rash - Patient Status Disposition: Home, Self-Care Condition: Good Functional capacity at discharge: independent ambulation Overall status at discharge: patient is back to baseline - Discharge Instructions Instructions: Metoprolol (By mouth), Aspirin (By mouth), Atorvastatin (By mouth), Clopidogrel (By mouth), Myocardial Infarction (DC), Left Heart Catheterization (DC), Coronary Intravascular Stent Placement (DC) Follow Up With: Juliana Sánchez CNP [Primary Care Provider] - (Please call the office of Dr. Juliana Sánchez to schedule a hospital follow up within 5-7 days of discharge) Garett Benito MD [Partnered Physician] - Additional Instructions: You will follow up with Dr. Benito at [facility] and your Primary Care Provider. You are to remain off work until seen by your commutator repairer. - You were prescribed aspirin, Plavix, Lipitor, and Metoprolol. It is crucial that you continue to take your medications as prescribed. - Nitroglycerin is to be taken as needed for chest pain. - It is important that you reduce your alcohol intake and follow up with your PCP for recommendations on ways to cut back. RISK FACTORS: STOP SMOKING: If you smoke, STOP. Smoking or tobacco use significantly increases your risk of heart disease because nicotine causes the arteries to narrow or constrict. It also causes fats to stick to the artery. Your chances of having a heart attack are greatly increased if you continue to smoke. For more information, call the education line for smoking cessation 4-535-[id number] EAT A LOW FAT/CHOLESTEROL/SODIUM DIET: This diet may help reduce your chances of having a heart attack. LIFTING: With affected extremity: Avoid bending, pushing off and lifting more than 2 pounds for 24 hours The following 48 hours, avoid lifting anything more than 5 pounds Avoid strenuous activity or repetitive motions ACTIVITY: You may walk or climb stairs as tolerated You can resume sexual activity as tolerated In general, you are encouraged to engage in a minimum of 30 minutes or more of moderate intensity physical activity, such as brisk walking, daily or at least 3-4 times weekly BATHING Do not submerge the site into water (bath tub, hot tub, swimming pool, dishes) for 1 week. This can be a source for infection into the blood stream. You may shower after 24 hours SITE CARE: After 24 hours, you may remove the dressing and leave the site open to air. Keep the site clean and dry. Clean gently and pat dry. You can expect bruising and tenderness that gradually resolve within a week or two. Return to work as instructed per your physician Resume driving as instructed per physician Keep all scheduled follow up appointments Resume medications as instructed IMPORTANT: If prescribed a Platelet Aggregation Inhibitor such as, Plavix, Brilinta or Effient: Duration of therapy is minimum one year These medications are often used in combination with Aspirin in prevention of future heart attacks Never discontinue unless consult with your Technical Sme STROKE (CVA) Risk factors for a stroke are: Age, cigarette smoking, diabetes, excessive alcohol consumption, family history, high blood pressure, overweight, physical inactivity, prior stroke, heart attack, diagnosis of carotid artery stenosis or other artery disease. Warning signs: Sudden numbness or weakness of the face, arm or leg; especially on one side of the body, sudden confusion, trouble speaking or understanding, sudden trouble seeing in one or both eyes, sudden trouble walking, dizziness, loss of balance or coordination, sudden severe headache with no cause. Call 911 or go to the Emergency Room. CONGESTIVE HEART FAILURE: If you have been diagnosed with Congestive Heart Failure (CHF) and your symptoms return, make an appointment with your physician Weigh yourself daily. Notify your physician if you have a weight gain of two or more pounds in one day or five or more pounds in one week. If you experience any difficulty breathing, please call 911 BLEEDING: Although the risk of bleeding is minimal, it can happen. If you have any bleeding from the site, apply firm pressure above the puncture site for 10-15 minutes. If the bleeding does not stop, continue manual pressure and call 911 CARDIAC REHABILITATION: If you have had a heart attack or cardiac stents placed, please ask your commutator repairer if Cardiac Rehabilitation is right for you. Cardiac Rehabilitation is recommended, beneficial to your health and can improve the following: strengthen your heart, improve ejection fraction, weight reduction, decrease cholesterol levels, lower blood pressure, lower blood sugar, improve stamina and enhance self-image. If you have any questions please call [facility] at [phone]. Contact [facility] ( ) if: You develop a fever greater than 101 degrees Fahrenheit Your site becomes reddened or has any drainage You have an increase in pain or burning at the site or if a large knot forms at the site. If you experience chest pain, shortness of breath, dizziness, or extreme tiredness, stop the activity and rest. Please notify [facility] office if you experience any of these symptoms and they are not relieved by rest please call 911! - Diet and Activity Activity: as per the cardiac rehab Diet: low fat, low cholesterol, low salt diet <Karen Reilly - Last Filed: 02/06/19 15:17> Date of Encounter: 02/06/19 Hospital course: Mr. Gibbs is a 48 year old male - Time Spent with Patient Total time spent providing and/or coordinating discharge services: Date of admission: 02/05/19 14:28 Primary care physician: Juliana Sánchez CNP Consults: 02/05/19 14:48 Consult to Cardiac Rehabilitation-Phase1 [CONS] Routine Comment: Reason for Consult: acute mi Call Completed: Yes - Constitutional Vitals: Temp Pulse Resp BP Pulse Ox 98.3 F 68 14 111/77 96 02/06/19 05:46 02/06/19 06:31 02/06/19 05:46 02/06/19 06:31 02/06/19 06:31 - Attending Attestation I examined this patient and my medical decision-making was reviewed with the Resident Physician Dr Chandler. I agree with the documented findings, disposition and treatment plan as described except to the extent set forth below. Mr Gibbs was admitted with NSTEMI 2/2 RCA occlusion. He is being discharged to home in stable condition awake, deneis cp, pressure or sob overnight. feeling well. no right hand pain, numbness or tingling. He is awaiting cardiology eval today then dc to home. dc plan discussed. He has been seen by cardiac rehab today and given info. He has no questions. gen- alert, awake,appears stated age cv- reg rate and rhythm, normal s1,s2, no murmurs appreciated, cap refill right hand normal, no le edema lungs- ctabl, normal resp effort neuro- AAOx3, sensation intact to lt touch hands NSTEMI 2/2 CAD w total RCA occlusion s/p 3 RCA ESTELLA- DAPT, statin, BB,acei outpt cards fu and cardiac rehab Etoh use-no etoh w/d while here- cessation encouraged further dx and plan as noted by resident time spent on dc 25 min
--- NOTE | 2019-02-06 14:23 | Cardiology Progress Note ---
Date of Encounter: 02/06/19 Time of Encounter: 14:20 Assessment and Plan (1) NSTEMI (non-ST elevated myocardial infarction) Current Visit: Yes Status: Acute Per Cardiology: Troponin 6.95. EF on echocardiogram 60%. Status post urgent left heart catheterization for non-STEMI and underwent drug-eluting stent to proximal RCA 100% stenosis, drug-eluting stent to mid RCA 80% stenosis, and drug-eluting stent to distal RCA 80% lesion. Has remaining nonobstructive distal left main 20%, proximal LAD 50-60%, and proximal circumflex 50-60% lesions. Clinically stable. On aspirin, Plavix, statin, beta bertha. We will add low-dose BASIL inhibitor. Recommend prescribed nitroglycerin pills at discharge. Post procedure and MS education provided. Importance of dual antiplatelet therapy reinforced. Needs work excuse for hospital stay and remain off work until seen for follow-up with cardiology. Cardiology signing off, reconsult as needed, follow-up arranged. All questions answered. Discussion w patient/family: The assessment and plan as outlined above was discussed with the patient and/or family members who expressed understanding and agreement. All questions were answered. Thank you for involving us in the care of your patient. Please call with any questions. Subjective Principal diagnosis: NSTEMI Interval history: Denies any chest pain, short of breath, palpitations. Denies any concerns of his right wrist site. Objective Selected Entries 02/06/19 05:46 02/06/19 06:31 02/06/19 08:30 Temperature 98.3 F Pulse Rate 68 Blood Pressure 111/77 O2 Sat by Pulse Oximetry 96 Oxygen Delivery Method Room Air General: Conversant, No Apparent Distress HEENT: Atraumatic, Normocephaly, Mucus Membranes Moist Neck: No JVD, Normal carotid pulses Cardiac: Reg Rate and Rhythm, Normal S1 and S2, No Murmur Lungs: Normal Breath Sounds, No Wheeze, Rales, Rhonchi Neuro: Alert and responsive, No focal deficits noted Abdomen: Soft, Non-Tender Skin: No rashes noted on visualized skin, Other (Right wrist site drain intact, no hematoma, no bleeding, right radial pulse 2+ palpable) Musculoskeletal: No Chest Wall Tenderness Extremities: No Clubbing, No Cyanosis, No Edema, Normal Pulses Results 02/06/19 01:35 02/06/19 01:35 Lab Results Laboratory Tests 02/05/19 02/05/19 02/06/19 09:51 09:51 01:35 Hgb Hct INR 1.0 Creatinine Est GFR (Non-Af Amer) Hemoglobin A1c 5.0 Troponin I 6.95 H* 02/06/19 02/06/19 01:35 01:35 Hgb 14.0 D Hct 40.4 INR Creatinine 1.24 Est GFR (Non-Af Amer) > 60 Hemoglobin A1c Troponin I ITS Impressions Chest X-Ray 02/05/19 09:43 IMPRESSION: No radiographic evidence of acute cardiopulmonary process. D/ / Krzysztof Cobb MD / Krzysztof Cobb MD Interpreting Provider: Krzysztof Cobb MD Echocardiogram 02/05/19 11:27 Impressions: LVEF 60%. Mild segmental left ventricular systolic dysfunction. Normal left ventricular diastolic function. Mildly dilated right ventricle with normal systolic funciton. Mildly dilated right atrium. No significant valvular dysfunction. No evidence of pulmonary hypertension. Left Ventricular Wall Motion: Rest Echo Findings The mid inferior and basal inferior mariano were hypokinetic. All other wall segments showed normal motion. Findings: Study Quality * Technically adequate exam. ECG Findings * Normal sinus rhythm. Left Ventricle * LVEF 60%. * Normal LV chamber size, wall thickness. * Mild segmental left ventricular systolic dysfunction. * Normal left ventricular diastolic function. Right Ventricle * Mildly dilated right ventricle with normal systolic funciton. Left Atrium * Normal left atrial size. Right Atrium * Mildly dilated right atrium. Interatrial Septum * Interatrial septum not well evaluated. Aortic Valve * Aortic valve not well visualized. * No aortic stenosis. * No aortic regurgitation. Mitral Valve * Normal mitral valve structure. * No mitral stenosis. * Trace mitral regurgitation. Tricuspid Valve * Normal tricuspid valve structure. * No tricuspid stenosis. * Trace tricuspid regurgitation. * Unable to estimate RVSP due to lack of TR jet. * No evidence of pulmonary hypertension. * Estimated RA pressure is 3 mmHg. Pulmonic Valve * Pulmonic valve is not well visualized. * No pulmonic stenosis. * Trace pulmonic regurgitation. Aorta * Normally sized aortic root. Pericardium * The pericardium appears normal. IVC * The IVC is not dilated. * > 50% respiratory change Active Medications Acetaminophen (Tylenol) 650 mg PO Q6HR PRN PRN Reason: Mild Pain Stop: 08/07/19 14:48 Last Admin: 02/05/19 17:54 Dose: 650 mg Documented by: Aspirin (Aspirin) 81 mg PO DAILY [facility] Stop: 08/08/19 09:01 Last Admin: 02/06/19 08:50 Dose: 81 mg Documented by: Atorvastatin Calcium (Lipitor) 80 mg PO HS [facility] Stop: 08/08/19 21:01 Clopidogrel Bisulfate (Plavix) 75 mg PO DAILY [facility] Stop: 08/08/19 09:01 Last Admin: 02/06/19 08:50 Dose: 75 mg Documented by: Folic Acid (Folic Acid) 1 mg PO DAILY [facility] Stop: 08/08/19 09:01 Last Admin: 02/06/19 08:50 Dose: 1 mg Documented by: Lorazepam (Ativan) 2 mg IVP Q4HR PRN PRN Reason: CIWA Score of 10-21 Stop: 08/07/19 17:47 Lorazepam (Ativan) 4 mg IVP Q4HR PRN PRN Reason: CIWA Score of 22-45 Stop: 08/07/19 17:47 Lorazepam (Ativan) 1 mg IVP Q1H PRN PRN Reason: Alcohol Withdrawal Stop: 08/07/19 17:47 Metoprolol Succinate (Toprol Xl) 25 mg PO DAILY [facility] Stop: 08/07/19 11:31 Last Admin: 02/06/19 08:50 Dose: 25 mg Documented by: Nitroglycerin (Nitroglycerin) 0.4 mg SL Q5MPRN PRN PRN Reason: Chest Pain Stop: 08/07/19 09:44 Last Admin: 02/05/19 10:32 Dose: 0.4 mg Documented by: Ondansetron HCl (Zofran) 4 mg IVP Q6HR PRN; Protocol PRN Reason: Nausea And Vomiting Stop: 08/07/19 14:48 Thiamine HCl (Vitamin B-1) 100 mg PO DAILY [facility] Stop: 08/08/19 09:01 Last Admin: 02/06/19 08:49 Dose: 100 mg Documented by: Vitamin B Complex/Vit C/Vit E (Stresstab) 1 each PO DAILY [facility] Stop: 08/08/19 09:01 Last Admin: 02/06/19 08:49 Dose: 1 each Documented by: - Imaging and Cardiology Echo: report reviewed Cardiac cath: report reviewed Consult Discharge Plan - Plan Referrals: Garett Benito MD [Partnered Physician] - Juliana Sánchez CNP [Primary Care Provider] - (Please call the office of Dr. Juliana Sánchez to schedule a hospital follow up within 5-7 days of discharge) Prescriptions: Aspirin 81 mg PO DAILY 30 Days #30 tab.chew Atorvastatin [Lipitor] 80 mg PO HS 30 Days #30 tablet Clopidogrel [Plavix] 75 mg PO DAILY 30 Days #30 tablet Metoprolol XL (24 HR) Succ [Toprol Xl] 25 mg PO DAILY 30 Days #30 tab.er.24h
== END 2019-02-06 17:16 | disposition home or self-care (01) | DRG 247 ==
LOC: EMEROOARM 09:31 → 2NENU 09:31
PROVIDERS: ADMIT Student in an Organized Health Care Education/Training Program; ATTEND Student in an Organized Health Care Education/Training Program